=== PATIENT | female | born 1980 | race Caucasian/White ===

== ENCOUNTER → 2016-09-19 | Outpatient (CLI) | payer OTHER ==
--- NOTE | 2016-09-19 08:34 | CT ---
EXAMINATION TYPE: CT brain w con DATE OF EXAM: 09/19/2016 COMPARISON: MR pituitary mass protocol dated 08/28/2014 HISTORY: Dizziness and sharp pain CT DLP: 1017.9 mGycm Automated Exposure Control for Dose Reduction was Utilized. TECHNIQUE: CT scan of the head is performed with IV contrast.,CT scan of the head is performed withou t and with with IV Contrast, patient injected with 100 mL of Omnipaque 300. FINDINGS: Left frontal intraventricular shunt terminates in the anterior horn of the left lateral ve ntricle. There is no evidence of hydrocephalus. Mild encephalomalacia is seen along the left frontal shunt tract. There is no evidence of intra-axial mass or abnormal enhancement. No evidence of vasogenic or cytotox ic edema. No evidence of midline shift. A large calcified structure is seen within the pituitary glan d placing slight mass effect upon the tectum measuring at least 2.9 x 2.2 cm. No gross evidence of ac elim ira intracranial hemorrhage. The globes are intact and the visualized sinuses are clear. IMPRESSION: 1. No evidence of intra-axial mass, midline shift, gross evidence of intraparenchymal hemorrhage or a bnormal enhancement. 2. Dense dystrophic calcifications within the pineal gland region without appreciable soft tissue com ponent. Discrete impression upon the superior tectum and may create Parinaud's syndrome clinically. M R with and without intravenous contrast could be performed for evaluation of a soft tissue component and enhancement as this could represent densely calcified pineal gland versus the possibility of a pi mert neoplasm.
== END | disposition home or self-care (01) ==
LOC: RADCTMAIN 06:50
PROVIDERS: ATTEND Family Medicine
DX: E34.8 Other specified endocrine disorders (principal); G91.9 Hydrocephalus, unspecified
CPT/HCPCS: 70460; Q9967

== ENCOUNTER → 2016-10-13 | Outpatient (CLI) | payer OTHER ==
--- NOTE | 2016-10-14 08:47 | MR ---
EXAMINATION TYPE: MR brain wo/w con DATE OF EXAM: 10/13/2016 COMPARISON: CT brain 09/19/2016, MRI of pituitary gland 08/28/1947 HISTORY: Obstructive hydrocephalus, shunt placed 1983, revised 1988, 2001 TECHNIQUE: Multiplanar, multisequence images of the brain and brainstem is performed without and with IV contras t, utilizing 7 mL intravenous Gadavist . FINDINGS: Exam limited by artifact from the postsurgical changes. Diffusion weighted images demonstrate no evidence of a recent infarct or other diffusion abnormality . There is a left frontal intraventricular shunt which terminates in the body of the left lateral ventr icle. No diagnostic evidence of hydrocephalus. There is a mixed signal 2.7 cm lesion within the pineal gland region which likely contains calcificat ion and does result in some impression upon the tectum. Does appear to be heterogeneous signal patter n and peripheral enhancement. Pineal gland lesion would be favored. Retrospectively stable dating jeannette k to 08/28/2014 MR pituitary gland. Changes of chronic cysts sinusitis noted.. Midline structures demonstrate normal morphology. The craniocervical junction appears within normal limits. Post contrast images demonstrate no abnormal enhancement. The dural venous sinuses appear pa tent. The visualized sinuses are clear and the globes are intact. IMPRESSION: 1. GLOVE CUTTER shunt catheter stable from recent CT scan. 2. 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 Differential include a densely calcified enlarged pineal gland or p ineal region tumor including pinealocytoma. Findings retrospectively stable in size dating back to e MRI of the pituitary gland dated 08/28/2014.
== END | disposition home or self-care (01) ==
LOC: RADMRIMAIN 17:03
PROVIDERS: ATTEND Family Medicine
DX: D35.4 Benign neoplasm of pineal gland (principal); G91.9 Hydrocephalus, unspecified; Z96.89 Presence of other specified functional implants
CPT/HCPCS: 70553; A9581

== ENCOUNTER → 2018-11-02 | Outpatient (CLI) | payer BC ==
--- NOTE | 2018-11-02 22:12 | CONS ---
CONSULTATION REASON FOR CONSULTATION: Consultation note for hypersomnia. 37-year-old female patient coming in for chronic hypersomnia that has been going on for at least 10 years. The patient reports that she is very sleepy and no matter what she does, she stays sleepy and tired during the day. She is currently going to bed around 10 p.m., wakes up at 6 a.m. in the morning. On weekends, she wakes up around 8:00 am. She is excessively fatigued and sleepy during the day and she tells me that she can easily fall asleep. She works in the [employer] and she drives back and forth and she does not fall asleep while driving. 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 She does not fall asleep while doing day-to-day activities or her computer work at work. She was recently diagnosed having depression and she has been maintained on citalopram 40 mg that she takes in the morning. She denies having any snoring. No choking or gasping for air in the middle of the night. No restlessness in the lower extremities. No sleep talking. No grinding of the teeth. No sleep paralysis. No hallucinations or cataplexy. No head trauma. No meningitis. No encephalitis. No substance abuse. She is taking energy drinks and the patient drinks 2-8 ounces of the V8 energy drink and 1-2 5 hour energy shots on a daily basis to keep her going. She does not drink coffee at all. No history of alcoholism. No history of substance abuse. PAST MEDICAL HISTORY: Depression, currently on citalopram. PAST SURGICAL HISTORY: Includes TUBE SPLICER shunt in 1982 with subsequent shunt revision in 2001. She has also an arthroscopic knee surgery, and LASIK eye surgery. DRUG ALLERGIES: CAFFEINE WHICH MAKES HER THROAT SWELL. OUTPATIENT MEDICATION: List includes: Citalopram 40 mg daily and recently she was given Ambien. The rationale of this medication is not known to me. She was asked to take Ambien 5 mg at bedtime for sleep induction and maintenance. SOCIAL HISTORY: The patient has no alcoholism. No substance abuse. No smoking. FAMILY HISTORY: Negative for any sleep breathing disorder or narcolepsy. REVIEW OF SYSTEMS: Fourteen-point review of system was done. Positive findings are mentioned above in history of present illness. No recent weight gain or weight loss. She is trying to lose weight. She has lost 7 pounds over the past 1 year. No history of any motor vehicle accident because of feeling drowsy or sleepy. She can easily take a nap at any point in time if she is given the opportunity to do so. PHYSICAL EXAMINATION: Her current vitals: BP is 110/76, pulse 89, respirations 16, temperature 98.4. Saturation 98% on room air. Height is 5 feet 3 inches, weight is 161. Bumpass Score is at 17. BMI 28.5, and neck size 14 and 1/3 of an inch. GENERAL APPEARANCE: Calm and comfortable. HEENT: Head is atraumatic, normocephalic. NECK: Supple. No JVD. No goiter or neck masses. Mallampati class III. LUNGS: Clear to auscultation. HEART: Sounds regular rate and rhythm. Normal S1, S2. No S3. No murmurs. ABDOMEN: Soft, nontender. No organomegaly. EXTREMITIES: No edema. No cyanosis or clubbing. NEUROLOGIC: Alert and oriented x3. No focal neurological deficits. PSYCHIATRIC: Positive for depression. Negative for anxiety. SKIN is negative for any wounds or ulceration. IMPRESSION: 1. Chronic hypersomnia Bumpass score of 17 currently under investigation. Exact cause is not clear. This is a chronic problem. No other major comorbidities contributing to this. She has had a TUBE SPLICER shunt at a young age with subsequent revision. She has also history of depression currently well treated with citalopram. Doubt sleep breathing disorder. Doubt narcolepsy. 2. History of depression. PLAN: It is possible that the patient's hypersomnia is of a central cause. Nevertheless, before committing to this central or neurologic hypersomnia would like to rule out other possibilities including sleep breathing disorder, sleep apnea and high narcolepsy. I think ideally I would like to do a PSG with a second day MSLT if the PSG is negative. I offered that to the patient. She needs to get herself off the citalopram around 10 days prior to the procedure to uncover any narcoleptic disorder. Avoid taking Ambien and this needs to be discontinued. Encourage further weight loss. Optimize sleep hygiene measures. We will continue to follow and make further recommendations based on results of sleep study. MMODL / IJN: [id number] /
== END | disposition home or self-care (01) ==
LOC: SLEEP 16:00
PROVIDERS: ATTEND Internal Medicine Critical Care Medicine
DX: G47.10 Hypersomnia, unspecified (principal); F32.9 Major depressive disorder, single episode, unspecified; Z98.2 Presence of cerebrospinal fluid drainage device; Z79.899 Other long term (current) drug therapy; Z91.018 Allergy to other foods
CPT/HCPCS: 99211

== ENCOUNTER → 2019-03-01 | Outpatient (CLI) | payer BC ==
--- NOTE | 2019-03-01 19:40 | PN ---
PROGRESS NOTE Sandee is 38 with hypersomnia, Stephen[place] score of 17. She was investigated with a PSG and a second-day polysomnogram. 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 She has also history of depression, on citalopram. The polysomnogram came back negative for sleep apnea or periodic limb movement activity. The second-day MSLT confirmed the presence of hypersomnia with a mean sleep latency of 6.6 hours without any REM-onset sleep. As such, the patient has primary idiopathic hypersomnia. This could be related to underlying neurologic disorder, probably related to previous hydrocephalus and CARNALLITE PLANT OPERATOR shunting. No other obvious contributing factors to her hypersomnia in general. She has good sleep hygiene measures. No history of any head trauma. No history of any other metabolic disease or disorders. The sleep study showed no evidence of any sleep breathing disorder, no evidence of any nocturnal oxygen desaturations. She had adequate sleep architecture with over-representation of stage III sleep. She is excessively sleepy and this is affecting her quality of life and ability to work and function. REVIEW OF SYSTEMS: Fourteen-point review of systems was done. Positive findings were all mentioned above in the history of present illness. PHYSICAL EXAMINATION: VITAL SIGNS: Her current vital signs are as follows. BP is 102/69, pulse is 88, respirations 14, temperature 98.5. Stephentown Score is 17. Weight is 154. GENERAL APPEARANCE: Calm, comfortable. HEAD: Atraumatic, normocephalic. NECK: Supple. No JVD. No goiter or neck masses. LUNGS: Clear to auscultation. HEART: Heart sounds are regular rate and rhythm. Normal S1, S2. No S3, S4. No murmurs. ABDOMEN: Soft, nontender. No organomegaly. EXTREMITIES: No edema. No cyanosis or clubbing. NEUROLOGIC: Awake and alert. No focal neurological deficits. PSYCHIATRIC: Negative for anxiety or depression. IMPRESSION: Chronic hypersomnia, Stephen[place] score of 17. Investigation was done at length and the patient has no obvious cause to contribute to her chronic hypersomnia. Objectively she is somnolent and sleepy and she has a mean sleep latency of 6.6 minutes. No REM-onset sleep. Does not fit the criteria of narcolepsy. She is considered to have a primary idiopathic hypersomnia. She would benefit from stimulant, knowing that her symptoms are quite excessive and it is affecting her quality of life and ability to function at work. PLAN: 1. Implement good sleep hygiene measures. 2. Extend sleep hours. 3. Start modafinil 200 mg in the morning. 4. See me back in 3 months' time in followup to discuss treatment response. MMODL / IJN: [id number] /
== END | disposition home or self-care (01) ==
LOC: SLEEP 16:10
PROVIDERS: ATTEND Internal Medicine Critical Care Medicine
DX: Z53.9 Procedure and treatment not carried out, unspecified reason (principal)

== ENCOUNTER → 2019-12-29 | Outpatient (CLI) | payer BC ==
--- NOTE | 2019-12-29 12:04 | MM ---
Reason for exam: clinical finding. Baseline mammogram. History: Took hormonal contraceptives for 10 years. Physical Findings: Nurse did not find any significant physical abnormalities on exam. MG Diagnostic Mammo w CAD BARB Bilateral CC and MLO view(s) were taken. The breast tissue is extremely dense which could obscure a lesion on mammography. Finding: There are typically benign round, coarse, diffuse/scattered calcifications in the lower inner quadrant of the right breast. These results were verbally communicated with the patient and result sheet given to the patient on 12/29/19. ASSESSMENT: Probably benign, BI-RAD 3 RECOMMENDATION: Follow-up diagnostic mammogram of the right breast in 6 months.
== END | disposition home or self-care (01) ==
LOC: RADMAMWWP 10:49
PROVIDERS: ATTEND Nurse Practitioner
DX: N64.53 Retraction of nipple (principal)
CPT/HCPCS: 77066

== ENCOUNTER 2020-05-10 22:48 | Observation (INO) | payer BC ==
[2020-05-11] MEDS ORDERED: IV FLUID CONTINUATION 1,000 ML IV ONE (07:04)
--- NOTE | 2020-05-11 07:18 | P.GSHP ---
History of Present Illness H&P Date: 05/11/20 Chief Complaint: Acute appendicitis Patient presents to the ER last night with complaints of pain that began yesterday morning around 6:00. Pain present right lower quadrant initially but be came Gerber diffuse throughout the day. Some nausea but no vomiting. No fevers. Appetite diminished. No history of similar events. White blood cell count elevated at 18,000. CAT scan performed showing acute appendicitis. 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 Otherwise no abdominal surgeries. - Review of Systems Comment: The patient denies any acute changes in vision or hearing, no dysphagia or odynophagia, no chest pain or shortness of breath, no dysuria or hematuria, no headache, no runny nose, no rectal bleeding or melena, no unexplained weight loss Past Medical History Additional Past Medical History / Comment(s): Hydrocephalus with brain shunt placement in 1983 History of Any Multi-Drug Resistant Organisms: None Reported Additional Past Surgical History / Comment(s): Brain shunt placement in 1983, left knee scope. Past Anesthesia/Blood Transfusion Reactions: No Reported Reaction Past Psychological History: Anxiety, Depression Smoking Status: Never smoker Past Alcohol Use History: Occasional Additional Past Alcohol Use History / Comment(s): Social drinker Past Drug Use History: None Reported - Past Family History Brother(s) Additional Family Medical History / Comment(s): Brother from an AVM. Medications and Allergies Home Medications Medication Instructions Recorded Confirmed Type Citalopram Hydrobromide 40 mg PO HS 05/11/20 05/11/20 History [Citalopram HBr] Dextroamphetamine/Amphetamine 30 mg PO QAM 05/11/20 05/11/20 History [Adderall Xr] Zolpidem [Ambien] 10 mg PO HS 05/11/20 05/11/20 History Allergies Allergy/AdvReac Type Severity Reaction Status Date / Time No Known Allergies Allergy Verified 05/11/20 06:54 Surgical - Exam Vital Signs Temp Pulse Resp BP Pulse Ox 98.4 F 88 16 113/74 100 05/11/20 06:49 05/11/20 06:49 05/11/20 06:49 05/11/20 06:49 05/11/20 06:49 Physical exam: General: Well-developed, well-nourished HEENT: Normocephalic, sclerae nonicteric Abdomen: Right lower quadrant tenderness, prior scars noted, nondistended Extremities: No edema Neuro: Alert and oriented Assessment and Plan (1) Acute appendicitis Narrative/Plan: Clinical scenario reviewed with the patient. We'll proceed with laparoscopic, possible open appendectomy at this time. Risks of bleeding, infection, scarring, bladder bowel and ureteral injury, abscess, conversion to an open procedure reviewed. She understands and wishes to proceed. Current Visit: Yes Status: Acute Code(s): K35.80 - UNSPECIFIED ACUTE APPENDICITIS SNOMED Code(s): 52989406
[2020-05-11] MEDS ORDERED: ONDANSETRON 4 MG/2 ML VIAL ONE ×2 (07:26→23:59)
[2020-05-11] MEDS ORDERED: GLYCOPYRROLATE 0.2 MG/ML 2 ML VIAL ONE (07:27)
[2020-05-11] MEDS ORDERED: MIDAZOLAM 2 MG/2 ML VIAL ONE (07:27)
[2020-05-11] MEDS ORDERED: SUCCINYLCHOLINE CHLORIDE 100 MG/5 ML SYR IV ONE (07:27)
[2020-05-11] MEDS ORDERED: fentaNYL (PF) 50 MCG/ML 2 ML AMP ONE (07:27)
[2020-05-11] MEDS ORDERED: ROCURONIUM 10 MG/ML (5 ML VIAL) IV ONE (07:27)
[2020-05-11] MEDS ORDERED: NEOSTIGMINE 1 MG/ML 10 ML VIAL ONE (07:27)
[2020-05-11] MEDS ORDERED: PROPOFOL 10 MG/ML 20 ML VIAL IV ONE (07:27)
[2020-05-11] MEDS ORDERED: ONDANSETRON 4 MG/2 ML VIAL IVP ONE (07:30)
[2020-05-11] MEDS ORDERED: DEXAMETHASONE SOD PHOSPHATE 4 MG/ML 1 ML VIAL IVP ONE (07:30)
[2020-05-11] MEDS ORDERED: ceFAZolin 1,000 MG VIAL IVPB ONE (07:50)
[2020-05-11 07:53] LABS: ALT 10 U/L (4-34); AST 19 U/L (14-36); African American GFR (CKD) >90 (>60 ml/min/1.73 sqM); Albumin 4.9 g/dL (3.5-5.0); Alkaline Phosphatase 45 U/L (38-126); Amylase 45 U/L (30-110); Anion Gap 9 mmol/L; Blood Urea Nitrogen 11 mg/dL (7-17); Calcium 9.8 mg/dL (8.4-10.2); Carbon Dioxide 26 mmol/L (22-30); Chloride 100 mmol/L (98-107); GGT 17 U/L (12-43); Glucose 113 mg/dL (74-99); Lipase 15 U/L (23-300); Non-African American GFR(CKD) >90 (>60 ml/min/1.73 sqM); Potassium 4.5 mmol/L (3.5-5.1); Sodium 135 mmol/L (137-145); Total Bilirubin 0.8 mg/dL (0.2-1.3); Total Protein 7.8 g/dL (6.3-8.2)
[2020-05-11] MEDS ORDERED: LACTATED RINGERS 1,000 ML IV ONE (08:00)
[2020-05-11] MEDS ORDERED: BUPIVACAINE (PF) 0.25% 30 ML VIAL SQ ONE ×2 (08:03)
[2020-05-11 08:11] LABS: Appearance,Urine Cloudy (Clear); Bacteria,Urine Many /hpf; Bilirubin,Urine Negative (Negative); Blood,Urine Negative (Negative); Color,Urine Yellow; Glucose,Urine (UA) Trace (Negative); Ketones,Urine 4+ (Negative); Leukocyte Esterase,Urine Small (Negative); Mucus,Urine Many /hpf; Nitrite,Urine Negative (Negative); Protein,Urine 1+ (Negative); RBC,Urine 9 /hpf (0-5); Squamous Epithelial Cell,Urine 7 /hpf (0-4); Urobilinogen,Urine <2.0 mg/dL (<2.0); WBC,Urine 4 /hpf (0-5)
[2020-05-11 08:23] LABS: Basophils % (A) 0 %; Eosinophils # (A) 0.1 k/uL (0-0.7); Eosinophils % (A) 0 %; HCT 42.2 % (34.0-46.0); HGB 14.3 gm/dL (11.4-16.0); Lymphocytes # (A) 0.6 k/uL (1.0-4.8); Lymphocytes % (A) 3 %; MCHC 33.8 g/dL (31.0-37.0); MCV 91.5 fL (80.0-100.0); Mean Platelet Volume 7.4; Monocytes # (A) 0.9 k/uL (0-1.0); Monocytes % (A) 5 %; Neutrophils # (A) 17.1 k/uL (1.3-7.7); Neutrophils % (A) 91 %; Platelet Count 242 k/uL (150-450); RBC 4.61 m/uL (3.80-5.40); RDW 11.9 % (11.5-15.5); WBC 18.7 k/uL (3.8-10.6)
[2020-05-11] MEDS ORDERED: ACETAMINOPHEN TAB 325 MG TAB PO PRN (08:51)
[2020-05-11] MEDS ORDERED: ONDANSETRON 4 MG/2 ML VIAL IVP PRN (08:51)
[2020-05-11] MEDS ORDERED: HYDROcodone/APAP 5-325MG 1 EACH TAB PO PRN (08:51)
[2020-05-11] MEDS ORDERED: NALOXONE 0.4 MG/ML 1 ML VIAL IV PRN (08:51)
[2020-05-11] MEDS ORDERED: DOCUSATE 100 MG CAP PO SCH (09:00)
--- NOTE | 2020-05-11 09:03 | P.OP ---
Date of Procedure: 05/11/20 Procedure(s) Performed: PREOPERATIVE DIAGNOSIS: Acute appendicitis POSTOPERATIVE DIAGNOSIS: Same PROCEDURE: Laparoscopic appendectomy SURGEON: Leslie EBL: 10 mL ANESTHESIA: General COMPLICATIONS: None OPERATIVE PROCEDURE: The patient was brought and placed on the operating table in the supine position. The patient was placed under general anesthesia. The abdomen was prepped and draped in the usual sterile fashion. A small vertical infraumbilical incision was made. The fascia was retracted anteriorly with Ozzie forceps. The Veress needle was advanced into the peritoneal cavity. The saline drop test was normal. Insufflation took place to 15 mmHg. A 5 mm trocar was then placed. An additional 5 mm suprapubic trocar was placed under direct visualization as well as a 12 mm left lower quadrant trocar under direct visualization. As we anticipated the patient did have adhesions in the abdomen. The cecum and ascending colon were densely adherent to the anterior abdominal wall. Some of the small bowel loops were adhesed to the abdominal wall superiorly above the umbilicus. I was able to visualize the PHOTOGRAPHIC PLATEMAKER shunt floating freely in the mid abdomen. Some serous fluid that had a slightly cloudy appearance was evacuated. The appendix was distended and coiled adjacent to the cecum. Using a combination of blunt dissection and sharp dissection I was able to better visualize the course of the appendix. The proximal appendix at the junction with the cecum had a more normal appearance. A window was created in the mesoappendix and the base of the appendix was divided using a blue load stapler. The mesentery was divided using the LigaSure device. During the dissection there was noted to be a small amount of serous fluid between the appendix cecum and abdominal wall. This had a slightly thicker consistency although did not appear to be mucus. The appendix was removed from the abdom inal cavity using an Endo Catch bag. The fascia was closed using a [id number] Tavo-Tonya stitch. No bleeding was seen. The pneumoperitoneum was evacuated. The skin at all 3 sites was closed using 4-0 Monocryl sutures. Skin glue was then applied. DISPOSITION: Stable to recovery room
[2020-05-11 09:52] VITALS: TEMP 97.5
--- NOTE | 2020-05-11 09:59 | CT ---
EXAM: CT Abdomen and Pelvis With Intravenous Contrast CLINICAL HISTORY: abd pain with nausea TECHNIQUE: Axial computed tomography images of the abdomen and pelvis with intravenous contrast. CTDI is 13.47 mGy and DLP is 588.4 mGy-cm. This CT exam was performed using one or more of the following dose reduction techniques: automated exposure control, adjustment of the mA and/or kV according to patient size, and/or use of iterative reconstruction technique. COMPARISON: No relevant prior studies available. FINDINGS: Lung bases: No mass. No consolidation. ABDOMEN: Liver: Unremarkable. Gallbladder and bile ducts: Multiple gallstones in the neck with pericholecystic fluid.. Pancreas: Unremarkable. Spleen: Unremarkable. Adrenals: Unremarkable. Kidneys and ureters: No hydronephrosis. Stomach and bowel: No bowel obstruction. No bowel wall thickening. PELVIS: Appendix: Thickened and dilated appendix measuring up to 1.9 cm. Bladder: Unremarkable. Reproductive: IUD in place. Involuting follicle in the right ovary measuring 1.5 cm. ABDOMEN and PELVIS: Intraperitoneal space: Mild ascites. Catheter terminates in the mid abdomen. Bones/joints: No acute fractures. Soft tissues: Unremarkable. Vasculature: No abdominal aortic aneurysm. Lymph nodes: No enlarged lymph nodes. IMPRESSION: 1. Acute appendicitis. 2. Cholelithiasis with trace pericholecystic fluid. The fluid may be from overall increased volume status. 3. Mild ascites. 4. Involuting follicle in the right ovary measuring 1.5 cm.
[2020-05-11 11:49] VITALS: BP 105/70; PULSE 82; RESP 18
[2020-05-11] MEDS ORDERED: KETOROLAC 15 MG/ML 1 ML VIAL IVP SCH (12:00)
--- NOTE | 2020-05-11 14:53 | P.DS ---
Providers Date of admission: 05/11/20 04:10 Expected date of discharge: 05/11/20 Attending physician: Evgeny Nelson Primary care physician: Azul Painter - Discharge Diagnosis(es) (1) Acute appendicitis Patient admitted through the ER with right lower quadrant pain, leukocytosis and CAT scan consistent with acute appendicitis. She underwent laparoscopic appendectomy earlier this morning. Patient doing well postoperatively. She would like to go home today. Will send home on 1 week course of oral antibiotic given the patient's previous PLANT PROTECTION GUARD shunt placement. Patient will follow-up in 1-2 weeks. Status: Acute Patient Condition at Discharge: Fair Plan - Discharge Summary Discharge Rx Participant: No New Discharge Prescriptions: New oxyCODONE HCL [OxyIR] 5 mg PO Q6H PRN 3 Days #6 tab PRN Reason: Breakthrough Pain Amoxicillin/Potassium Clav [Augmentin 875-125 Tablet] 1 tab PO BID 7 Days #14 tab No Action Zolpidem [Ambien] 10 mg PO HS Dextroamphetamine/Amphetamine [Adderall Xr] 30 mg PO QAM Citalopram Hydrobromide [Citalopram HBr] 40 mg PO HS Discharge Medication List Amoxicillin/Potassium Clav [Augmentin 875-125 Tablet] 1 tab PO BID 7 Days #14 tab 05/11/20 [Rx] Citalopram Hydrobromide [Citalopram HBr] 40 mg PO HS 05/11/20 [History] Dextroamphetamine/Amphetamine [Adderall Xr] 30 mg PO QAM 05/11/20 [History] Zolpidem [Ambien] 10 mg PO HS 05/11/20 [History] oxyCODONE HCL [OxyIR] 5 mg PO Q6H PRN 3 Days #6 tab 05/11/20 [Rx] Follow up Appointment(s)/Referral(s): Evgeny Nelson MD [Medical Doctor] - 05/16/20 3:45 pm Azul Painter DO [Primary Care Provider] - 05/18/20 9:00 am (At main office in [place]. ) Activity/Diet/Wound Care/Special Instructions: No lifting over 10 pounds until cleared at follow up appointment. If you develop fever or chills call Dr Nelson's office. If incisions start leaking call Dr Nelson's office. Return to ER with any emergent needs.
[2020-05-11] MEDS ORDERED: HEPARIN SODIUM,PORCINE 5,000 UNIT/ML 1 ML VIAL SQ SCH (16:00)
[2020-05-11] MEDS ORDERED: MORPHINE SULFATE 4 MG/ML SYRINGE ONE (23:59)
[2020-05-11] MEDS ORDERED: SODIUM CHLORIDE 0.9% 1,000 ML BAG ONE (23:59)
[2020-05-11] MEDS ORDERED: DICYCLOMINE 10 MG CAP ONE (23:59)
[2020-05-11] MEDS ORDERED: LORazepam 2 MG/ML INJ ONE (23:59)
[2020-05-11] MEDS ORDERED: SODIUM CHLORIDE 0.9% 500 ML BAG ONE (23:59)
[2020-05-11] MEDS ORDERED: PIPERACILLIN-TAZOBACTAM 3.375 GM VIAL ONE (23:59)
[2020-05-11] MEDS ORDERED: SODIUM CHLORIDE 0.9% 100 ML BAG ONE (23:59)
== END 2020-05-11 14:13 | disposition home or self-care (01) ==
LOC: EC 22:48 → 6PED 05-11 04:10
PROVIDERS: ADMIT Surgery; ATTEND Surgery
DX: K35.80 Unspecified acute appendicitis (principal); K80.20 Calculus of gallbladder without cholecystitis without obstruction; R18.8 Other ascites; G91.9 Hydrocephalus, unspecified; Z98.2 Presence of cerebrospinal fluid drainage device; F32.9 Major depressive disorder, single episode, unspecified; F41.9 Anxiety disorder, unspecified; Z20.822 Contact with and (suspected) exposure to COVID-19; Z79.899 Other long term (current) drug therapy; Z82.79 Family history of other congenital malformations, deformations and chromosomal abnormalities
CPT/HCPCS: 96376; 96361; 96374; 96375; 99285; 81025 ×2; 88304; 80053; 82150; 82977; 83690; 85025; 81001; 87635; 74177; 44970; G0378; J2250; J1100; J2710; J2405; J0690; J3010; J1885; J0330; J2704; Q9967

== ENCOUNTER → 2020-06-19 | Outpatient (CLI) | payer BC ==
--- NOTE | 2020-06-20 08:13 | MM ---
Reason for exam: follow-up at short interval from prior study. Last mammogram was performed 6 months ago. History: Took hormonal contraceptives for 15 years. Physical Findings: Nurse did not find any significant physical abnormalities on exam. MG Diagnostic Mammo w CAD BARB Bilateral CC and MLO view(s) were taken. Prior study comparison: December 29, 2019, bilateral MG diagnostic mammo w CAD BARB. The breast tissue is extremely dense which could obscure a lesion on mammography. Finding: There are diffuse/scattered, fine calcifications in the lower inner quadrant of the right breast. No significant changes in finding since December 29, 2019. These results were verbally communicated with the patient and result sheet given to the patient on 06/19/20. ASSESSMENT: Probably benign, BI-RAD 3 RECOMMENDATION: Follow-up diagnostic mammogram of the right breast in 6 months.
== END | disposition home or self-care (01) ==
LOC: RADMAMWWP 14:17
PROVIDERS: ATTEND Family Medicine
DX: R92.1 Mammographic calcification found on diagnostic imaging of breast (principal); R92.2 Inconclusive mammogram
CPT/HCPCS: 77066

== ENCOUNTER → 2020-07-30 | Outpatient (CLI) | payer BC ==
--- NOTE | 2020-07-31 09:59 | MR ---
EXAMINATION TYPE: MR brain wo/w con DATE OF EXAM: 07/30/2020 COMPARISON: 10/12/2016 HISTORY: Vertigo, Weakness, Memory and processing issues. History of shunt CONTRAST: Performed utilizing 5.5ml mL intravenous Gadavist gadolinium contrast. TECHNIQUE: Multiplanar, multiecho imaging on a 3.0 Rachel magnet is performed through the brain. Stud y is performed within 24 hours of arrival to the hospital. FINDINGS: Susceptibility artifact is present along the left calvarium. This area is some limitation p resent. The craniovertebral junction is normal. The pituitary is normal. Diffusion-weighted imaging is performed. No abnormal hyperintensity is present to suggest an acute i ntracranial infarct or acute ischemic change. Shunt catheter may be present in the left frontal region into the left lateral ventricle. Left latera l ventricle is decompressed compared to the right. No temporal horn dilatation is evident. The third ventricle appears normal and midline. Fourth ventricle appears normal. Sulci and extra-axial spaces a ppear within normal limits. There is limitation in evaluating the frontal parietal region on the left due to the susceptibility artifact. Within the pineal region and T2 sequences there is hypointense signal with heterogenous internal sign al. This area measures approximately 2.3 x 2.1 cm. This is stable in size. Following contrast this raygoza s peripheral enhancement. Signal through the visualized brain otherwise appears normal. Following contrast, peripheral enhancement to the pineal region periphery is noted. The appearance is stable from the comparison. IMPRESSIONS: 1. No ventricular or sulcal prominence to suggest shunt malfunction or hydrocephalus. 2. Pineal region changes are stable over the interval. 3. MRI brain with catheter otherwise appears within normal limits.
== END | disposition home or self-care (01) ==
LOC: RADMRIMAIN 18:34
PROVIDERS: ATTEND Nurse Practitioner
DX: R42 Dizziness and giddiness (principal); R53.1 Weakness; Z98.2 Presence of cerebrospinal fluid drainage device
CPT/HCPCS: 70553; A9585